=== PATIENT | female | born 1965 | race African-American/Black ===

== ENCOUNTER 2021-05-29 22:57 | Emergency (ER) | payer OTHER ==
[~2021-05-29] VITALS: Ht 170.2 cm; Wt 133.8 kg
[2021-05-29 22:57] VITALS: BP 165/85
== END 2021-05-30 00:48 | disposition left against medical advice (07) ==
LOC: EDBD 22:57 → ER 22:57
DX: R10.30 Lower abdominal pain, unspecified (principal); R11.2 Nausea with vomiting, unspecified; R19.7 Diarrhea, unspecified; Z53.21 Procedure and treatment not carried out due to patient leaving prior to being seen by health care provider
CPT/HCPCS: 93005